=== PATIENT | male | born 1960 | race African-American/Black ===

== ENCOUNTER 2017-06-09 14:06 | Emergency (ER) | payer OTHER ==
[~2017-06-09] VITALS: Ht 180.3 cm; Wt 90.9 kg
[2017-06-09 14:20] VITALS: BP 183/85; PULSE 84; RESP 16; O2SAT 99
--- NOTE | 2017-06-09 15:48 | ED.REPORT ---
HPI-Abd Pain M 40 and Over Date of Service Jun 09, 2017 ED Provider: Doc,Ed MD History of Present Illness: nausea and vomiting from 9 am till noon, still with nausea. fine yesterday. eating fine yesterday. Primary care is in [place]. DM HTN, feels his s/s are related to the medication for his prostrate. Started medication on Saturday last week, Marysol at [facility] in [place], urology started him on it. Was having frequent urination. no significant changes per his report Nursing Notes Stated Complaint: ABDOMINAL PAIN Chief Complaint: Male Abdominal Pain Nursing Notes Reviewed: Yes Allergies: Coded Allergies: No Known Allergies (Unverified , 06/09/17) General Time Seen by MD: 15:46 Chief Complaint Abdominal pain, Other (nausea nad vomiting) Hx Obtained From: Patient Sudden in Onset?: Yes Onset Occurred: 9 - 12 hours ago Symptom Duration: Since onset Past Medical History Past Medical History Reports: Diabetes mellitus, Hypertension, Denies: Asthma Past Surgical History hernia and thyroid Smoking History Never Smoker Social History Alcohol Use: Denies alcohol use Drug Use: Denies drug use Occupation single, work at [employer] 06/09/2017 Ambulatory Status Independent Review of Systems Basic Review of Systems Eyes: Vision NL, No discharge Skin: No bruising, No rash, No itch Psychiatric: Normal thought content Physical Exam Initial Vital Signs Vital Signs (First) Date Time Temp Pulse Resp B/P Pulse Ox O2 Delivery O2 Flow Rate FiO2 06/09/17 14:20 36.7 84 16 183/85 99 Room Air Initial VS: Reviewed, Vital signs abnormal Head / Eyes: Atraumatic, Normocephalic, PERRL ENT: Mucous membranes moist, Conjunctiva normal, No scleral icterus Neck: Supple, Non-tender, Full range of motion Lymphatic: No lymphadenopathy Extremities: Vascular intact, Neuro intact, No swelling, No tenderness Skin: Warm, Dry, No cyanosis Neurologic: Alert, Oriented, Nonfocal Psychiatric: Mood/affect normal, Behavior normal, Normal thought content General/Constitutional: Awake, Alert, No acute distress, Well appearing, Well developed, Well hydrated, Well nourished, Cooperative, Not toxic appearing Respiratory / Chest: Atraumatic, Breath sounds NL, Breath sounds = bilat, No respiratory distress, No rales, No rhonchi, No wheezing Cardiovascular: Heart rate NL, Regular rhythm, Heart sounds NL, No gallop, No murmurs, No rubs Abdomen: Atraumatic, Soft, Non-tender, McBurney's non-tender Back: Atraumatic, Inspection NL, Full range of motion, Painless range of motion Interpretation & Diagnostics Lab Results Interpretation Result Diagram: 06/09/17 1628 06/09/17 1628 Test 06/09/17 16:28 06/09/17 19:54 White Blood Count 6.4th/mm3 (3.8-10.1) Red Blood Count 4.56mil/mm3 (4.40-5.80) Hemoglobin 13.9g/dL (13.8-17.2) Hematocrit 41.2% (41.0-50.0) Mean Corpuscular Volume 90.4fL (81-100) Mean Corpuscular Hemoglobin 30.5pg (27.0-35.0) Mean Corpuscular Hemoglobin Concent 33.7% (32.0-37.0) Red Cell Distribution Width 12.5% (12.3-15.4) Platelet Count 178bil/L (150-400) Neutrophils (%) (Auto) 74.3% (40-74) Lymphocytes (%) (Auto) 17.7% (14-46) Monocytes (%) (Auto) 6.2% (4-12) Eosinophils (%) (Auto) 1.1% (0-5) Basophils (%) (Auto) 0.5% (0-3) Sodium Level 135mEq/L (134-144) Potassium Level 4.4mEq/L (3.5-5.2) Chloride Level 96mEq/L (97-108) Carbon Dioxide Level 25mmol/L (18-29) Blood Urea Nitrogen 9mg/dL (6-24) Creatinine 0.78mg/dL (0.76-1.27) Estimat Glomerular Filtration Rate 109mL/min (>59) Glucose Level 271mg/dL (60-99) Calcium Level 8.6mg/dL (8.5-10.1) Magnesium Level 1.8mg/dL (1.6-2.6) Total Bilirubin 0.7mg/dL (0.0-1.2) Aspartate Amino Transf (AST/SGOT) 24U/L (0-50) Alanine Aminotransferase (ALT/SGPT) 35U/L (0-44) Alkaline Phosphatase 59U/L (25-150) Troponin T < 0.010ug/L (0.0-0.011) Total Protein 6.8g/dL (6.4-8.4) Albumin 4.3g/dL (3.4-5.0) Lipase 25U/L (13-60) Hold Wall Top Tube Received (Received) Lab Results Interpretation: urine is negative except for 1000 glucose, u tox is positive for thc only CT Abd / Pelvis Interpretation ECHNIQUE: Noncontrast 5 mm thick sections acquired from the diaphragms to the symphysis. 5 mm thick coronal and sagittal reformats were then performed. For radiation dose reduction, the following was used: automated exposure control, adjustment of mA and/or kV according to patient size. COMPARISON: None. FINDINGS: Image quality: Excellent. Lung bases: Lung bases are clear. Heart size is normal. Urinary system: Both kidneys are normal in size. There are two punctate inferior left renal pole calculi. Very minimal prominence of the left renal collecting system.. No perinephric fat stranding. Both ureters appear non-dilated throughout their expected courses. Bladder wall thickness is normal; no calcified bladder stones. Other solid organs: Liver is enlarged with steatosis. normal in size. Spleen is unremarkable. Gallbladder is unremarkable. Pancreas is normal in contours. Minimal appearance of left adrenal nodular thickening. Peritoneum and bowel: Unenhanced bowel loops demonstrate normal wall thickness and caliber. No free fluid or air. Appendix is unremarkable. Colonic diverticula are present without associated inflammatory change. Nodes and vessels: No retroperitoneal or mesenteric adenopathy by size criteria. Aorta and inferior vena cava are normal in caliber. Abdominal wall: No ventral hernias. Pelvis: No free pelvic fluid. A containing inguinal hernias are present. Bones: No suspicious bony lesions. No vertebral body compression fractures. IMPRESSION: 1. Punctate left renal calculi as above. Minimal prominence of the left renal collecting system. No ureteral or bladder calculi are identified. Dictated by: Katerine Cam M.D. on 06/09/2017 at 17:44 Approved by: Katerine Cam M.D. on 06/09/2017 at 17:47 Re-Eval/Medical Decision Med Decision/Clinical Course 56 year old male with sudden onset of nausea and vomiting. Patient reports the vomiting has stopped but still has some nausea. labs are normal, ekg is normal, troponin is normal, CT kub is normal. Marvin is able to hold down ice chips. No sign of appy or acute abd. Ivett's blood pressure has normalized before leaving. Discharge & Departure Primary Impression: Nausea & vomiting Vomiting type: unspecified Additional Impression: Uncontrolled diabetes mellitus Diabetes mellitus type: type 2 Disposition: Home Vital Signs - All Vital Signs Date Time Temp Pulse Resp B/P Pulse Ox O2 Delivery O2 Flow Rate FiO2 06/09/17 16:14 81 149/63 100 Room Air 06/09/17 15:57 90 152/80 100 Room Air 06/09/17 14:20 36.7 84 16 183/85 99 Room Air Patient Instructions: Acute Nausea and Vomiting (ED), Type 2 Diabetes in Adults (ED) Additional Instructions: Your labs are looking good except for increase in glucose. Your urine looks good except for glucose. EKG looks good, no sign of any cardiac condition. You have been able to keep ice chips down. Prescription for zofran provided. Note for off work for 3 days provided. Please follow with primary care for a recheck this week. Referrals: OTHER,PHYSICIAN (PCP) EDSupervising Provider for APC: Luca King DO copies to: OTHER,PHYSICIAN Chalo Mckeon MD Jun 09, 2017 15:48 Shobha Borrego Jun 09, 2017 16:14
[2017-06-09] MEDS ORDERED: 0.9% Sodium Chloride 1,000 ML IV ONE (15:53)
[2017-06-09] MEDS ORDERED: Ondansetron 2 mg/mL 2 mL Inj IVPUSH PRN (15:55)
[2017-06-09 15:57] VITALS: BP 152/80; PULSE 90; O2SAT 100
[2017-06-09 16:14] VITALS: BP 149/63; PULSE 81; O2SAT 100
[2017-06-09 16:39] LABS: BASOPHILS % (AUTO) 0.5 % (0-3); EOSINOPHILS % (AUTO) 1.1 % (0-5); MONOCYTES % (AUTO) 6.2 % (4-12); Mean Corpuscular Hemoglobin 30.5 pg (27.0-35.0); Mean Corpuscular Volume 90.4 fL (81-100); NEUTROPHILS % (AUTO) 74.3 % (40-74); Platelet Count 178 bil/L (150-400)
[2017-06-09 17:04] LABS: Magnesium 1.8 mg/dL (1.6-2.6)
--- NOTE | 2017-06-09 17:49 | DRSVH ---
PROCEDURE: CT KUB ([id number]) INDICATIONS: abd pain TECHNIQUE: Noncontrast 5 mm thick sections acquired from the diaphragms to the symphysis. 5 mm thick coronal an d sagittal reformats were then performed. For radiation dose reduction, the following was used: aut omated exposure control, adjustment of mA and/or kV according to patient size. COMPARISON: None. FINDINGS: Image quality: Excellent. Lung bases: Lung bases are clear. Heart size is normal. Urinary system: Both kidneys are normal in size. There are two punctate inferior left renal pole michel culi. Very minimal prominence of the left renal collecting system.. No perinephric fat stranding. B oth ureters appear non-dilated throughout their expected courses. Bladder wall thickness is normal; no calcified bladder stones. Other solid organs: Liver is enlarged with steatosis. normal in size. Spleen is unremarkable. Gallb ladder is unremarkable. Pancreas is normal in contours. Minimal appearance of left adrenal nodular t hickening. Peritoneum and bowel: Unenhanced bowel loops demonstrate normal wall thickness and caliber. No free fluid or air. Appendix is unremarkable. Colonic diverticula are present without associated inflamma tory change. Nodes and vessels: No retroperitoneal or mesenteric adenopathy by size criteria. Aorta and inferior vena cava are normal in caliber. Abdominal wall: No ventral hernias. Pelvis: No free pelvic fluid. A containing inguinal hernias are present. Bones: No suspicious bony lesions. No vertebral body compression fractures. IMPRESSION: 1. Punctate left renal calculi as above. Minimal prominence of the left renal collecting system. No u reteral or bladder calculi are identified. Dictated by: Katerine Cam M.D. on 06/09/2017 at 17:44 Approved by: Katerine Cam M.D. on 06/09/2017 at 17:47
== END 2017-06-09 18:56 | disposition home or self-care (01) ==
LOC: EDBD 14:06 → SED 14:06
DX: E11.65 Type 2 diabetes mellitus with hyperglycemia (principal); R11.2 Nausea with vomiting, unspecified; I10 Essential (primary) hypertension
CPT/HCPCS: 36415; 74176; 80053; 81002; 82948; 83690; 83735; 84484; 85025; 93005; 96361; 96374; 99285; J2405; J7030